=== PATIENT | male | born 1945 | race Caucasian/White ===

== ENCOUNTER 2024-03-03 10:25 | Outpatient (AMB) | payer MEDICARE, MEDICAID, SELFPAY ==
--- NOTE | 2024-03-03 10:26 | MHC.OFFVIS ---
Vital Signs 03/03/24 10:28 Height 5 ft 8 in Weight 123 lb BMI 18.7 BP 171/76 H Blood Pressure Location Rt brachial Position Sitting Respiration 14 Pulse 68 Pulse Source Pulse Oximeter Pulse Oximetry (%) 98 Oxygen Delivery Method Room Air Intake Visit Reasons: SIJ pain Allergies No Known Allergies [No Known Allergies*] Allergy (Verified 03/03/24 10:30) Medication List - Last Reconciled 03/03/24 by Mi Mar LPN ascorbate calcium (vitamin C) 500 mg PO DAILY atorvastatin 80 mg PO BEDTIME brimonidine 0.025% 1 drp ophthalmic (eye) BID-QID PRN cetirizine (All Day Allergy (cetirizine)) 10 mg PO DAILY PRN cholecalciferol (vitamin D3) 25 mcg PO DAILY clopidogrel 75 mg PO DAILY ferrous gluconate 225 mg PO BID folic acid 0.4 mg PO DAILY geriatric [id number] 1 tab PO DAILY metformin 500 mg PO BID metoprolol tartrate 25 mg PO BID pantoprazole 40 mg PO DAILY trazodone 25 mg PO BEDTIME PRN HPI HPI SIJ pain: Details: 79-year-old male who presents today to the office for an evaluation of SIJ pain. He was referred to us by Dr. Rosario for an evaluation of his chronic right sacroiliac joint for consideration of other treatment modalities for chronic SI joint pain since injections have not been helpful in providing consistent long-term relief. He has had chronic right SI joint pain for the past ten years and has been managed with bracing and injections intermittently. These have been moderately helpful in reducing his symptoms from time to time, but he continues to have some pain up to 10/10 in intensity at times, despite the injections in braces. His most recent injection was in December 2020, which brought him down to a 3-4/10. He complains of chronic right SIJ and bilateral lower back pain that is 10/10 in intensity, especially at night. It is relatively better in the afternoon, when it is about 5/10. Weather changes and movements make it worse. He is unable to do his daily activities or function normally. He also complains of stabbing pain in his shoulders, aching pain in his neck, and some numbness in his posterior thighs. He also complains about aching in his bilateral trochanteric areas. He has not had neck or shoulder injections. [facility] Medical History (Updated 03/07/24 @ 11:28 by Samuel Will MD) CVA (cerebrovascular accident) Diabetes Seasonal allergies Hyperlipidemia Review of Systems Const All systems reviewed & are unremarkable except as noted in HPI and below Physical Exam Vital Signs: Last Vital Signs Pulse 68 03/03/24 10:28 Resp 14 03/03/24 10:28 BP 171/76 H 03/03/24 10:28 Pulse Ox 98 03/03/24 10:28 Oxygen Delivery Method Room Air 03/03/24 10:28 BMI result Body Mass Index 18.7 General: Appears afebrile. Alert and oriented. Mood and affect appropriate. Follows and participates in conversation appropriately. Respiratory effort is unlabored. Able to transition from sit to stand unassisted. Ambulates with bilaterally normal heel strike and toe off. Tenderness overlying bilateral sacroiliac joints. Results Reviewed Results Reviewed: No imaging is available for review. Assessment & Plan Assessment & Plan (1) Sacroiliac joint dysfunction: Code(s): M53.3 - Sacrococcygeal disorders, not elsewhere classified Category: Medical (2) Cluneal neuropathy: Code(s): G58.8 - Other specified mononeuropathies Category: Medical (3) Coronary artery disease: Code(s): I25.10 - Atherosclerotic heart disease of [place] coronary artery without angina pectoris Category: Medical Plan Discussed Curonix permanent stimulator implant as a possible treatment option for intractable low back pain not responsive to other interventions. Will place a referral for psychology clearance. Once we have received psychology clearance, we will plan for cluneal nerve stimulator with Curonix device. The patient will receive a call from [facility] for the psychology assessment. I explained to the patient that he would have a copay for his psychology clearance. Scribed for Dr. Will by Charles Chowdary, front office medical assistant, on 03/03/2024. I, Dr. Will, have personally reviewed and agree with the information entered by the scribe. Coding Level of Care Code New Pt Level 4 (85851) Diagnoses Sacroiliac joint dysfunction M53.3 Cluneal neuropathy G58.8 Coronary artery disease I25.10
[2024-03-03 10:28] VITALS: BP 171/76; PULSE 68; RESP 14; O2SAT 98; BMI 18.7
== END 2024-03-03 10:50 | disposition home or self-care (01) ==
PROVIDERS: PCP Internal Medicine; Visit Provider Internal Medicine
DX: M53.3 Sacrococcygeal disorders, not elsewhere classified (principal); G58.8 Other specified mononeuropathies; I25.10 Atherosclerotic heart disease of native coronary artery without angina pectoris
CPT/HCPCS: 99204

== ENCOUNTER → 2024-03-03 10:25 | Outpatient (BNVA) | payer MEDICARE, MEDICAID, SELFPAY | PROVIDERS: PCP Internal Medicine; Visit Provider Internal Medicine | DX: M53.3 Sacrococcygeal disorders, not elsewhere classified (principal); G58.8 Other specified mononeuropathies; I25.10 Atherosclerotic heart disease of native coronary artery without angina pectoris | CPT/HCPCS: 99202 ==